=== PATIENT | female | born 1980 | race Caucasian/White ===

== ENCOUNTER → 2017-01-19 | Outpatient (CLI) | payer SELFPAY | END | disposition home or self-care (01) | LOC: MW.CHFP 15:30 | PROVIDERS: ATTEND Family Medicine | DX: L29.8 Other pruritus (principal); N89.8 Other specified noninflammatory disorders of vagina | CPT/HCPCS: 87480; 87510; 87660 ==

== ENCOUNTER → 2017-01-26 | Outpatient (CLI) | payer SELFPAY ==
--- NOTE | 2017-01-26 15:22 | US ---
Examination: Greater than 14 weeks transabdominal ultrasound with color Doppler and M-mode evaluatio n. HISTORY: FINDINGS: LMP is 09/23/2016 EVALUATION: Posterior placenta with a breech lie and grade 1. Visually amniotic fluid is withi n normal limits. Three-vessel cord is seen. Ventricles are within normal limits. Nuchal fold thickness is 4-5 mm. Four chamber heart is noted. Heart rate is 159 beats per minute. BIOMETRY AND GESTATIONAL AGE: Biparietal diameter 4.1 cm. The abdominal circumference is 13.9 cm. The femoral length is 2.8 cm wit h head circumference of 15.4 cm. The gestational age is 18 weeks and 4 days. The expected date of de livery is approximately 06/25/2017. Fetus weight is 260 grams. Overall fetus is within the 95th perce ntile. Other detail anatomy summarized into PACs sheet after the images. No anatomical anomalies. IMPRESSION: 1. Single active IU with breech fetus. Posterior placenta with grade 1, no placenta previa . 2. No anomalies are seen. Amniotic fluid appears within normal limits. 3. Overall the fetus is within the 95th percentile.
== END ==
LOC: MW.US 10:39
PROVIDERS: ATTEND Advanced Practice Midwife
DX: Z34.92 Encounter for supervision of normal pregnancy, unspecified, second trimester (principal); Z3A.18 18 weeks gestation of pregnancy
CPT/HCPCS: 76805; 76805-26

== ENCOUNTER 2017-06-29 06:04 | Inpatient (IN) | payer MEDICAID, OTHER ==
[~2017-06-29 06:04] MED LIST: Citric Acid/Sodium Citrate Solution 30 ML Cup PO SCH; Lactated Ringers 1,000 ML IV SCH; Oxytocin/0.9 % Sodium Chloride 30 UNIT/500 ML BAG IV SCH; Sodium Chloride 0.9% 10 ML Syringe FLUSH PRN; Sodium Chloride 0.9% 2.5 ML Syringe FLUSH PRN
[2017-06-29] MEDS ORDERED: ceFAZolin 2 GM in Premix Bag 1 BAG IV ONE (06:43)
[2017-06-29] MEDS ORDERED: Sodium Chloride 0.9% 20 ML ONE (07:53)
[2017-06-29] MEDS ORDERED: ceFAZolin 1 GM Vial ONE ×2 (07:58→08:12)
[2017-06-29] MEDS ORDERED: Morphine PF 10 MG/10 ML SDV ONE (07:58)
--- NOTE | 2017-06-29 07:58 | PCM.PREANE ---
Preanesthetic Assessment - Anesthesia/Transfusion/Family Hx Anesthesia History: Prior Anesthesia Without Reaction Other Type of Anesthesia Reaction Comment: Denies any known problem in past, "some motion sickness" Family History of Anesthesia Reaction: No Transfusion History: No Prior Transfusion(s) - Review of Systems General: No Symptoms Pulmonary: No Symptoms Cardiovascular: No Symptoms Gastrointestinal: No Symptoms Neurological: No Symptoms Other: Reports: None - Physical Assessment NPO Status Date: 06/28/17 NPO Status Time: 19:00 Height: 1.65 m Weight: 91.172 kg ASA Class: 2 Mental Status: Alert & Oriented x3 Airway Class: Mallampati = 2 Dentition: Reports: Normal Dentition ROM/Head Extension: Full Lungs: Clear to Auscultation, Normal Respiratory Effort Cardiovascular: Regular Rate, Regular Rhythm - Lab Values: Laboratory Last Values WBC 7.81 K/uL (4.0-11.0) 06/28/17 16:06 RBC 3.91 M/uL (4.30-5.90) L 06/28/17 16:06 Hgb 10.9 g/dL (12.0-16.0) L 06/28/17 16:06 Hct 32.8 % (36.0-46.0) L 06/28/17 16:06 MCV 83.9 fL (80.0-98.0) 06/28/17 16:06 MCH 27.9 pg (27.0-32.0) 06/28/17 16:06 MCHC 33.2 g/dL (31.0-37.0) 06/28/17 16:06 RDW Std Deviation 50.2 fl (28.0-62.0) 06/28/17 16:06 RDW Coeff of Denae 17 % (11.0-15.0) H 06/28/17 16:06 Plt Count 231 K/uL (150-400) 06/28/17 16:06 MPV 10.90 fL (7.40-12.00) 06/28/17 16:06 Nucleated RBC % 0.0 /100WBC 06/28/17 16:06 Nucleated RBCs # 0 K/uL 06/28/17 16:06 Blood Type O POSITIVE 06/28/17 16:06 Antibody Screen NEGATIVE 06/28/17 16:06 - Allergies Allergies/Adverse Reactions: Allergies Allergy/AdvReac Type Severity Reaction Status Date / Time No Known Allergies Allergy Verified 01/15/15 10:07 - Blood Blood Available: Yes - Anesthesia Plan Pre-Op Medication Ordered: Antacids - Acknowledgements Anesthesia Type Planned: Spinal Pt an Appropriate Candidate for the Planned Anesthesia: Yes Alternatives and Risks of Anesthesia Discussed w Pt/Guardian: Yes Pt/Guardian Understands and Agrees with Anesthesia Plan: Yes Additional Comments: hx gest DM, diet controlled, 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: , 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 - Past Surgical History Head Surgeries/Procedures: Reports: None Female Surgical History: Reports: Section - SUBSTANCE USE Smoking Status *Q: Never Smoker Second Hand Smoke Exposure: No Days Per Week of Alcohol Use: 0 Number of Drinks Per Day: 0 Total Drinks Per Week: 0 Recreational Drug Use History: No - HOME MEDS Home Medications: Home Meds Vit No.78/Iron/Fa [Prenatabs FA] 1 tab PO DAILY 01/15/15 [History] - CURRENT (IN HOUSE) MEDS Current Meds: Current Medications Citric Acid/Sodium Citrate (Bicitra Solution) 30 ml PO .ONCE JUNI Last Admin: 06/29/17 07:26 Dose: 30 ml Lactated Ringer's (Ringers, Lactated) 1,000 mls @ 500 mls/hr IV .BOLUS JUNI Last Admin: 06/29/17 07:26 Dose: 500 mls/hr Oxytocin/Sodium Chloride (Oxytocin 30 Unit/500 Ml-Ns) 30 unit in 500 mls @ 250 mls/hr IV TITRATE JUNI Sodium Chloride (Saline Flush) 10 ml FLUSH ASDIRECTED PRN PRN Reason: Keep Vein Open Sodium Chloride (Saline Flush) 2.5 ml FLUSH ASDIRECTED PRN PRN Reason: Keep Vein Open Discontinued Medications Cefazolin Sodium/Dextrose 2 gm (/ Premix) 50 mls @ 100 mls/hr IV ONETIME ONE Stop: 06/29/17 07:12 Sodium Chloride (Normal Saline) Confirm Administered Dose 20 mls @ as directed .ROUTE .STK-MED ONE Stop: 06/29/17 07:54
[2017-06-29] MEDS ORDERED: ePHEDrine 50 MG/ML SDV ONE (08:00)
[2017-06-29] MEDS ORDERED: Water For Injection, Sterile 20 ML ONE (08:01)
--- NOTE | 2017-06-29 08:10 | PCM.LDHP ---
L&D History of Present Illness - General Date of Service: 06/29/17 Admit Problem/Dx: Patient Status Order with Admit Dx/Problem 06/28/17 08:48 Patient Status [ADT] Routine Admission Diagnosis/Problem Admission Diagnosis/Problem Source of Information: Patient History Limitations: Reports: No Limitations - History of Present Illness Improves with: Reports: None Worsens with: Reports: None Associated Symptoms: Reports: N - Related Data Allergies/Adverse Reactions: Allergies Allergy/AdvReac Type Severity Reaction Status Date / Time No Known Allergies Allergy Verified 01/15/15 10:07 Home Medications: Home Meds Vit No.78/Iron/Fa [Prenatabs FA] 1 tab PO DAILY 01/15/15 [History] 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: , 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 - Past Surgical History Head Surgeries/Procedures: Reports: None Female Surgical History: Reports: Section Social & Family History - Family History Family Medical History: Noncontributory - Tobacco Use Smoking Status *Q: Never Smoker Second Hand Smoke Exposure: No - Caffeine Use Caffeine Use: Reports: Coffee, Soda - Alcohol Use Days Per Week of Alcohol Use: 0 Number of Drinks Per Day: 0 Total Drinks Per Week: 0 - Recreational Drug Use Recreational Drug Use: No Drug Use in Last 12 Months: No H&P Review of Systems - Review of Systems: Review Of Systems: See Below General: Reports: No Symptoms HEENT: Reports: No Symptoms Pulmonary: Reports: No Symptoms Cardiovascular: Reports: No Symptoms Gastrointestinal: Reports: No Symptoms Genitourinary: Reports: No Symptoms Musculoskeletal: Reports: No Symptoms Skin: Reports: No Symptoms Psychiatric: Reports: No Symptoms Neurological: Reports: No Symptoms Hematologic/Lymphatic: Reports: No Symptoms Immunologic: Reports: No Symptoms L&D Exam - Exam Exam: See Below - Vital Signs Weight: 91.172 kg - OB Specific Fundal Height In cm: 40 Contraction Intensity: Mild Movement: Active Heart Tones: Present Presentation: Vertex - Murphy Score Murphy Score Cervix Position: Midposition Murphy Score Consistency: Firm Murphy Score Effacement: 31-50% Murphy Score Dilation: Closed Murphy Score Infant's Station: -2 Murphy Score Total: 3 - Exam General: Alert, Oriented HEENT: PERRLA, Conjunctiva Clear, EACs Clear, EOMI, Hearing Intact, Mucosa Moist & [place], Nares Patent, Normal Nasal Septum, Posterior Pharynx Clear, TMs Clear Neck: Supple, Trachea Midline Lungs: Clear to Auscultation, Normal Respiratory Effort Cardiovascular: Regular Rate, Regular Rhythm GI/Abdominal Exam: Normal Bowel Sounds, Soft, Non-Tender, No Organomegaly, No Distention, No Abnormal Bruit, No Mass, Pelvis Stable Rectal Exam: Normal Exam, Normal Rectal Tone Genitourinary: Normal external exam, Normal bimanual exam, Normal speculum exam Back Exam: Normal Inspection, Full Range of Motion Extremities: Normal Inspection, Normal Range of Motion, Non-Tender, No Pedal Edema, Normal Capillary Refill Skin: Warm, Dry, Intact Neurological: Cranial Nerves Intact, Reflexes Equal Bilateral Psychiatric: Alert, Normal Affect, Normal Mood - Patient Data Lab Results Last 24 hrs: Laboratory Results - last 24 hr 06/28/17 06/28/17 06/29/17 Range/Units 16:06 16:06 08:00 WBC 7.81 (4.0-11.0) K/uL RBC 3.91 L (4.30-5.90) M/uL Hgb 10.9 L (12.0-16.0) g/dL Hct 32.8 L (36.0-46.0) % MCV 83.9 (80.0-98.0) fL MCH 27.9 (27.0-32.0) pg MCHC 33.2 (31.0-37.0) g/dL RDW Std Deviation 50.2 (28.0-62.0) fl RDW Coeff of Denae 17 H (11.0-15.0) % Plt Count 231 (150-400) K/uL MPV 10.90 (7.40-12.00) fL Nucleated RBC % 0.0 /100WBC Nucleated RBCs # 0 K/uL POC Glucose 74 (60-110) mg/dL Blood Type O POSITIVE Antibody Screen NEGATIVE Result Diagrams: 06/28/17 16:06 Problem List Initiated/Reviewed/Updated: Yes Orders Last 24hrs: Active Orders 24 hr Category Date Time Status Patient Status [ADT] Routine ADT 06/28/17 08:48 Active Non Stress Test [RC] PER UNIT ROUTINE Care 06/28/17 08:48 Active Procedure Site Prep Instruct [RC] ASDIRECTED Care 06/28/17 08:48 Active Up ad Jo [RC] ASDIRECTED Care 06/28/17 08:48 Active Vital Signs [RC] PER UNIT ROUTINE Care 06/28/17 08:48 Active Citric Acid/Sodium Citrate [Bicitra Solution] Med 06/28/17 09:00 Active 30 ml PO .ONCE Lactated Ringers [Ringers, Lactated] 1,000 ml Med 06/28/17 09:00 Active IV .BOLUS Oxytocin/0.9 % Sodium Chloride [Oxytocin 30 Unit/500 ML Med 06/28/17 09:00 Active -NS] 30 unit in 500 ml IV TITRATE Sodium Chloride 0.9% [Saline Flush] Med 06/28/17 08:48 Active 10 ml FLUSH ASDIRECTED PRN Sodium Chloride 0.9% [Saline Flush] Med 06/28/17 08:48 Active 2.5 ml FLUSH ASDIRECTED PRN Peripheral IV Insertion Adult [OM.PC] Routine Oth 06/28/17 08:48 Ordered Schedule Procedure [COMM] Per Unit Routine Oth 06/28/17 08:48 Ordered Resuscitation Status Routine Resus Stat 06/28/17 08:48 Ordered Medication Orders Citric Acid/Sodium Citrate (Bicitra Solution) 30 ml PO .ONCE JUNI Last Admin: 06/29/17 07:26 Dose: 30 ml Lactated Ringer's (Ringers, Lactated) 1,000 mls @ 500 mls/hr IV .BOLUS JUNI Last Admin: 06/29/17 07:26 Dose: 500 mls/hr Oxytocin/Sodium Chloride (Oxytocin 30 Unit/500 Ml-Ns) 30 unit in 500 mls @ 250 mls/hr IV TITRATE JUNI Sodium Chloride (Saline Flush) 10 ml FLUSH ASDIRECTED PRN PRN Reason: Keep Vein Open Sodium Chloride (Saline Flush) 2.5 ml FLUSH ASDIRECTED PRN PRN Reason: Keep Vein Open Assessment/Plan Comment:: Termn ,IUP39+3< admitted for electivr repeat C/ Section.
[2017-06-29] MEDS ORDERED: Nalbuphine 10 MG/1 ML Vial ONE (09:17)
[2017-06-29] MEDS ORDERED: Octyl 2-Cyanoacrylate 1 Tube ONE (09:19)
[2017-06-29] MEDS ORDERED: Ondansetron 4 MG/2 ML SDV IV PRN (09:22)
[2017-06-29] MEDS ORDERED: Bisacodyl 10 MG Supp RECTAL PRN (09:22)
[2017-06-29] MEDS ORDERED: diphenhydrAMINE 50 MG/ML SDV IVPUSH PRN ×2 (09:22→09:56)
[2017-06-29] MEDS ORDERED: Acetaminophen/oxyCODONE 325-5 MG Tab PO PRN ×2 (09:22→09:58)
[2017-06-29] MEDS ORDERED: Lanolin 100% Cream 7 GM Tube TOP PRN (09:22)
[2017-06-29] MEDS ORDERED: Midazolam 1 MG/ML 2 ML SDV ONE (09:27)
--- NOTE | 2017-06-29 09:28 | PCM.OPNOTE ---
- General Post-Op/Procedure Note Date of Surgery/Procedure: 06/29/17 Operative Procedure(s): Repeat C/Section Bilateral tubal ligation Pre Op Diagnosis: IUP39+3 Previous c/section desore sterlization Post-Op Diagnosis: Same Anesthesia Technique: Spinal Primary Surgeon: Rickey Brewster Pill Coater: Tasha Hernandez Pill Coater: Kayla MIKE in mLs: 700 Complications: None Condition: Good
[2017-06-29] MEDS ORDERED: Nalbuphine 10 MG/1 ML Vial IVPUSH PRN (09:56)
[2017-06-29] MEDS ORDERED: Naloxone 0.4 MG/ML Syringe IVPUSH PRN (09:56)
[2017-06-29] MEDS ORDERED: fentaNYL 100 MCG/2 ML SDV IVPUSH PRN (09:58)
--- NOTE | 2017-06-29 09:58 | PCM.POSTAN ---
POST ANESTHESIA ASSESSMENT - MENTAL STATUS Mental Status: Alert, Oriented - RESPIRATORY Respiratory Status: Respiratory Rate WNL, Airway Patent, O2 Saturation Stable - CARDIOVASCULAR CV Status: Pulse Rate WNL, Blood Pressure Stable - GASTROINTESTINAL GI Status: No Symptoms - POST OP HYDRATION Hydration Status: Adequate & Stable
[2017-06-29] MEDS: Ketorolac 30 MG/ML SDV IVPUSH SCH ×3 (10:17→22:05)
--- NOTE | 2017-06-29 10:52 | OR ---
SURGEON: Rickey Brewster MD DATE OF PROCEDURE: 06/29/2017 PREOPERATIVE DIAGNOSIS: Intrauterine , 39 plus 3, term , previous section, desire permanent sterilization. POSTOPERATIVE DIAGNOSES: Intrauterine , 39 plus 3, term , previous section, desire permanent sterilization. OPERATION PERFORMED: Repeat low transverse section and Estella tubal ligation. BLOW MOLD TECHNICIAN: ROLANDO Estrada ANESTHESIA: Spinal, nurse director of scout work and Dr. Clayton. ESTIMATED BLOOD LOSS: 700 mL. COMPLICATIONS: None. FINDINGS: Normal uterus, tubes, and ovary. Female fetus. score, 8 and 9. The weight is not available at this time. INDICATIONS FOR SURGERY: This patient had multiple previous sections. She is term. She is 39 plus three weeks. She is followed in the clinic primarily by me. The patient desired permanent sterilization. She is petitioned at the ethic committee and she was approved by the ethic committee for tubal ligation at the time of the section. PROCEDURE IN DETAIL: The patient was brought to the OR, properly identified, and after adequate level of spinal anesthesia, with a Mike catheter in the bladder, the patient was prepped and draped in a sterile fashion as usual. Low transverse Pfannenstiel skin incision through the old scar was done. The Charu's fascia and rectus fascia were opened in direction of the incision. The 2 recti muscles were and peritoneal cavity was entered. The bladder flap was raised in the usual manner pushing the bladder away from the lower uterine segment. Low transverse uterine incision was done and extended manually with the hand. The fetus was in the vertex position, delivered without any problem. It was a female. She cried immediately. score reported to be 8 and 9. The weight is not available. The placenta delivered spontaneous, complete, and intact and then repair of the lower uterine segment was done with 2-0 Vicryl continuous interlocking and then reperitonealization of the lower uterine segment was done with 3-0 Vicryl continuous. Then attention was paid at this time to the tube and a segment of each tube was tied with 2-0 chromic catgut and transected and removed for histopathology thus achieving bilateral tubal ligation with a [place] method. Once that was accomplished, the peritoneal cavity evacuated completely from all blood and blood clot and closed with 3-0 Vicryl continuous. The rectus fascia was closed with #1 PDS double strand continuous. The Charu's fascia closed with 3-0 Vicryl and the skin closed in a subcuticular fashion. Instrument and sponge count were correct. The patient tolerated the procedure well, went to recovery room in stable general condition. WANDER ZAMUDIO /[id number]
[2017-06-29] MEDS: Lactated Ringers 1,000 ML IV SCH ×2 (10:53→19:02)
[2017-06-29] MEDS: Docusate Sodium 100 MG Cap PO SCH (22:05)
[2017-06-30] MEDS: Ketorolac 30 MG/ML SDV IVPUSH SCH ×2 (05:49→11:40)
--- NOTE | 2017-06-30 07:05 | PCM48HPAN ---
Post Anesthesia Note - EVALUATION WITHIN 48HRS OF ANESTHETIC Vital Signs in Normal Range: Yes Patient Participated in Evaluation: Yes Respiratory Function Stable: Yes Airway Patent: Yes Cardiovascular Function Stable: Yes Hydration Status Stable: Yes Pain Control Satisfactory: Yes Nausea and Vomiting Control Satisfactory: Yes Mental Status Recovered: Yes
--- NOTE | 2017-06-30 08:45 | PCM.PNPP ---
- General Info Date of Service: 06/30/17 Functional Status: Reports: Pain Controlled - Review of Systems General: Reports: No Symptoms HEENT: Reports: No Symptoms Pulmonary: Reports: No Symptoms Cardiovascular: Reports: No Symptoms Gastrointestinal: Reports: No Symptoms Genitourinary: Reports: No Symptoms Musculoskeletal: Reports: No Symptoms Skin: Reports: No Symptoms Neurological: Reports: No Symptoms Psychiatric: Reports: No Symptoms - General Info Date of Service: 06/30/17 - Patient Data Vital Signs - Most Recent: Last Vital Signs Temp 37.4 C 06/30/17 04:00 Pulse 83 06/30/17 07:00 Resp 17 06/30/17 07:00 BP 116/61 06/30/17 04:00 Pulse Ox 95 06/30/17 07:00 Weight - Most Recent: 91.172 kg I&O - Last 24 Hours: Intake & Output 06/29/17 06/30/17 06/30/17 22:59 06:59 14:59 Intake Total 500 750 Output Total 350 Balance 150 750 Lab Results - Last 24 Hours: Laboratory Results - last 24 hr 06/30/17 Range/Units 05:31 Hgb 9.9 L (12.0-16.0) g/dL Hct 30.5 L (36.0-46.0) % Med Orders - Current: Current Medications Bisacodyl (Dulcolax) 10 mg RECTAL .ONCE PRN PRN Reason: Constipation Citric Acid/Sodium Citrate (Bicitra Solution) 30 ml PO .ONCE JUNI Last Admin: 06/29/17 07:26 Dose: 30 ml Diphenhydramine HCl (Benadryl) 25 mg IVPUSH Q6H PRN PRN Reason: Itching or Nausea Diphenhydramine HCl (Benadryl) 25 mg IVPUSH Q4H PRN PRN Reason: Itching Stop: 06/30/17 09:57 Docusate Sodium (Colace) 100 mg PO BID JUNI Last Admin: 06/29/17 22:05 Dose: 100 mg Emollient Ointment (Lansinoh Hpa) 0 gm TOP ASDIRECTED PRN PRN Reason: Sore Nipples Fentanyl (Sublimaze) 25 - 50 mcg IVPUSH Q30M PRN PRN Reason: Pain Lactated Ringer's (Ringers, Lactated) 1,000 mls @ 500 mls/hr IV .BOLUS [facility] Last Admin: 06/29/17 07:26 Dose: 500 mls/hr Oxytocin/Sodium Chloride (Oxytocin 30 Unit/500 Ml-Ns) 30 unit in 500 mls @ 250 mls/hr IV TITRATE [facility] Lactated Ringer's (Ringers, Lactated) 1,000 mls @ 125 mls/hr IV ASDIRECTED [facility] Last Admin: 06/29/17 19:02 Dose: 125 mls/hr Ibuprofen (Motrin) 800 mg PO Q8H PRN PRN Reason: mild pain or fever Ketorolac Tromethamine (Toradol) 30 mg IVPUSH Q6H [facility] Stop: 06/30/17 09:31 Last Admin: 06/30/17 05:49 Dose: 30 mg Nalbuphine HCl (Nubain) 5 mg IVPUSH Q3H PRN PRN Reason: Pruritis Stop: 06/30/17 09:56 Naloxone HCl (Narcan) 0.1 mg IVPUSH ONETIME PRN PRN Reason: Other Stop: 06/30/17 09:57 Ondansetron HCl (Zofran) 4 mg IV Q4H PRN PRN Reason: Nausea/Vomiting Oxycodone/Acetaminophen (Percocet 325-5 Mg) 1 tab PO Q4H PRN PRN Reason: Pain (moderate 4-6) Oxycodone/Acetaminophen (Percocet 325-5 Mg) 2 tab PO Q4H PRN PRN Reason: Pain (moderate 4-6) Oxycodone/Acetaminophen (Percocet 325-5 Mg) 1 - 2 tab PO Q6H PRN PRN Reason: Pain Stop: 07/01/17 14:00 Sodium Chloride (Saline Flush) 10 ml FLUSH ASDIRECTED PRN PRN Reason: Keep Vein Open Sodium Chloride (Saline Flush) 2.5 ml FLUSH ASDIRECTED PRN PRN Reason: Keep Vein Open Discontinued Medications Cefazolin Sodium (Ancef) Confirm Administered Dose 1 gm .ROUTE .STK-MED ONE Stop: 06/29/17 07:59 Cefazolin Sodium (Ancef) Confirm Administered Dose 1 gm .ROUTE .STK-MED ONE Stop: 06/29/17 08:13 Ephedrine Sulfate (Ephedrine Sulfate) Confirm Administered Dose 50 mg .ROUTE .STK-MED ONE Stop: 06/29/17 08:01 Cefazolin Sodium/Dextrose 2 gm (/ Premix) 50 mls @ 100 mls/hr IV ONETIME ONE Stop: 06/29/17 07:12 Sodium Chloride (Normal Saline) Confirm Administered Dose 20 mls @ as directed .ROUTE .STK-MED ONE Stop: 06/29/17 07:54 Sterile Water (Sterile Water For Injection) Confirm Administered Dose 20 mls @ as directed .ROUTE .STK-MED ONE Stop: 06/29/17 08:02 Midazolam HCl (Versed 1 Mg/Ml) Confirm Administered Dose 2 mg .ROUTE .STK-MED ONE Stop: 06/29/17 09:28 Morphine Sulfate (Duramorph Pf) Confirm Administered Dose 10 mg .ROUTE .STK-MED ONE Stop: 06/29/17 07:59 Nalbuphine HCl (Nubain) Confirm Administered Dose 10 mg .ROUTE .STK-MED ONE Stop: 06/29/17 09:18 Octyl Cyanoacrylate (Dermabond Advance) Confirm Administered Dose 1 applic .ROUTE .STK-MED ONE Stop: 06/29/17 09:20 - Infant Interaction Support Person: Significant Other - Recovery Exam Fundal Tone: Firm Fundal Level: At Umbilicus Fundal Placement: Midline Lochia Amount: Small Lochia Color: Rubra/Red Perineum Description: Intact, Minimal Bruising/Swelling Episiotomy/Laceration: Approximated Bladder Status: Indwelling Catheter in Place Urinary Elimination: Voided - Exam General: Alert, Oriented HEENT: Pupils Equal Neck: Supple Lungs: Clear to Auscultation, Normal Respiratory Effort Cardiovascular: Regular Rate, Regular Rhythm GI/Abdominal Exam: Normal Bowel Sounds, Soft, Non-Tender, No Organomegaly, No Distention, No Abnormal Bruit, No Mass, Pelvis Stable Extremities: Normal Inspection, Normal Range of Motion, Non-Tender, No Pedal Edema, Normal Capillary Refill Skin: Warm, Dry, Intact Wound/Incisions: Healing Well Neurological: No New Focal Deficit Psy/Mental Status: Alert, Normal Affect, Normal Mood - Problem List Review Problem List Initiated/Reviewed/Updated: Yes - My Orders Last 24 Hours: My Active Orders 06/29/17 09:22 Acetaminophen/oxyCODONE [Percocet 325-5 MG] 1 tab PO Q4H PRN Acetaminophen/oxyCODONE [Percocet 325-5 MG] 2 tab PO Q4H PRN Bisacodyl [Dulcolax] 10 mg RECTAL .ONCE PRN Ibuprofen [Motrin] 800 mg PO Q8H PRN Lanolin [Lansinoh HPA] See Dose Instructions TOP ASDIRECTED PRN Ondansetron [Zofran] 4 mg IV Q4H PRN diphenhydrAMINE [Benadryl] 25 mg IVPUSH Q6H PRN 06/29/17 09:23 Patient Status [ADT] Routine Ambulate [RC] PER UNIT ROUTINE Antiembolic Devices [RC] PER UNIT ROUTINE Communication Order [RC] PER UNIT ROUTINE Communication Order [RC] PER UNIT ROUTINE Communication Order [RC] Per Unit Routine May Shower [RC] ASDIRECTED RT Incentive Spirometry [RC] Q2HWA Assess Lochia [WOMSER] Per Unit Routine Assess Uterine Involution [WOMSER] Per Unit Routine Breast Pump [WOMSER] Per Unit Routine Peripheral IV Discontinue [OM.PC] Routine Sequential Compression Device [OM.PC] Per Unit Routine 06/29/17 09:30 Ketorolac [Toradol] 30 mg IVPUSH Q6H Lactated Ringers [Ringers, Lactated] 1,000 ml IV ASDIRECTED 06/29/17 21:00 Docusate Sodium [Colace] 100 mg PO BID 06/30/17 Breakfast Regular Diet [DIET] - Assessment Assessment:: Status post section and tubal ligation postoperative day #1 patient is doing well - Plan Plan:: Termn ,IUP39+3< admitted for electivr repeat C/ Section.
[2017-06-30] MEDS: Docusate Sodium 100 MG Cap PO SCH ×2 (09:29→21:33)
[2017-06-30] MEDS: Acetaminophen/oxyCODONE 325-5 MG Tab PO PRN ×2 (09:29→17:19)
[2017-06-30] MEDS: Ibuprofen 800 MG Tab PO PRN (18:05)
[2017-07-01] MEDS: Ibuprofen 800 MG Tab PO PRN (07:38)
[2017-07-01] MEDS: Docusate Sodium 100 MG Cap PO SCH ×2 (07:39→08:20)
[2017-07-01 07:48] VITALS: BP 131/60
--- NOTE | 2017-07-01 09:57 | PCM.DCSUM1 ---
Discharge Summary - Hospital Course Free Text/Narrative:: Discharge home with . Follow up in 10 days for incision check and 6 weeks for post visit. - Discharge Data Discharge Date: 07/01/17 Discharge Disposition: Home, Self-Care 01 Condition: Good - Patient Summary/Data Operative Procedure(s) Performed: Repeat C/Section Bilateral tubal ligation - Patient Instructions Diet: Usual Diet as Tolerated Activity: As Tolerated, Rest and Relax Today Driving: May Drive Today Showering/Bathing: May Shower Wound/Incision Care: Keep Operative Site/Wound Site Clean and Dry Notify Provider of: Fever, Increased Pain, Swelling and Redness, Drainage, Nausea and/or Vomiting Other/Special Instructions: Discharge home with . Follow up in 10 days for incision check and 6 weeks for post visit. - Discharge Plan Home Medications: Home Meds Vit No.78/Iron/Fa [Prenatabs FA] 1 tab PO DAILY 01/15/15 [History] Patient Handouts: Delivery, Care After Referrals: [facility] [Outside] Rickey Brewster MD [Physician] - (1 week- July 07 @ 8:30am w/ Dr. Brewster 6 week- August 07 @ 10:45am w/ Dr. Brewster ) - General Info Date of Service: 07/01/17 Admission Dx/Problem (Free Text: Patient Status Order with Admit Dx/Problem 06/28/17 08:48 Patient Status [ADT] Routine Admission Diagnosis/Problem Admission Diagnosis/Problem Functional Status: Reports: Pain Controlled, Tolerating Diet, Ambulating, Urinating - Review of Systems General: Reports: No Symptoms HEENT: Reports: No Symptoms Pulmonary: Reports: No Symptoms Cardiovascular: Reports: No Symptoms Gastrointestinal: Reports: No Symptoms Genitourinary: Reports: No Symptoms Musculoskeletal: Reports: No Symptoms Skin: Reports: No Symptoms Neurological: Reports: No Symptoms Psychiatric: Reports: No Symptoms - Patient Data Vitals - Most Recent: Last Vital Signs Temp 36.8 C 07/01/17 07:00 Pulse 78 07/01/17 07:00 Resp 15 07/01/17 07:00 BP 131/60 07/01/17 07:00 Pulse Ox 94 L 07/01/17 07:00 Weight - Most Recent: 91.172 kg Med Orders - Current: Current Medications Bisacodyl (Dulcolax) 10 mg RECTAL .ONCE PRN PRN Reason: Constipation Citric Acid/Sodium Citrate (Bicitra Solution) 30 ml PO .ONCE [facility] Last Admin: 06/29/17 07:26 Dose: 30 ml Diphenhydramine HCl (Benadryl) 25 mg IVPUSH Q6H PRN PRN Reason: Itching or Nausea Docusate Sodium (Colace) 100 mg PO BID [facility] Last Admin: 07/01/17 08:20 Dose: Not Given Emollient Ointment (Lansinoh Hpa) 0 gm TOP ASDIRECTED PRN PRN Reason: Sore Nipples Fentanyl (Sublimaze) 25 - 50 mcg IVPUSH Q30M PRN PRN Reason: Pain Lactated Ringer's (Ringers, Lactated) 1,000 mls @ 500 mls/hr IV .BOLUS [facility] Last Admin: 06/29/17 07:26 Dose: 500 mls/hr Oxytocin/Sodium Chloride (Oxytocin 30 Unit/500 Ml-Ns) 30 unit in 500 mls @ 250 mls/hr IV TITRATE [facility] Lactated Ringer's (Ringers, Lactated) 1,000 mls @ 125 mls/hr IV ASDIRECTED [facility] Last Admin: 06/29/17 19:02 Dose: 125 mls/hr Ibuprofen (Motrin) 800 mg PO Q8H PRN PRN Reason: mild pain or fever Last Admin: 07/01/17 07:38 Dose: 800 mg Measles/Mumps/Rubella Vaccine Live (M-M-R Ii Vaccine) 0.5 ml SUBCUT .ONCE ONE Stop: 07/02/17 09:44 Ondansetron HCl (Zofran) 4 mg IV Q4H PRN PRN Reason: Nausea/Vomiting Oxycodone/Acetaminophen (Percocet 325-5 Mg) 1 tab PO Q4H PRN PRN Reason: Pain (moderate 4-6) Last Admin: 06/30/17 17:19 Dose: 1 tab Oxycodone/Acetaminophen (Percocet 325-5 Mg) 2 tab PO Q4H PRN PRN Reason: Pain (moderate 4-6) Last Admin: 06/30/17 23:09 Dose: 2 tab Oxycodone/Acetaminophen (Percocet 325-5 Mg) 1 - 2 tab PO Q6H PRN PRN Reason: Pain Stop: 07/01/17 14:00 Sodium Chloride (Saline Flush) 10 ml FLUSH ASDIRECTED PRN PRN Reason: Keep Vein Open Sodium Chloride (Saline Flush) 2.5 ml FLUSH ASDIRECTED PRN PRN Reason: Keep Vein Open Discontinued Medications Cefazolin Sodium (Ancef) Confirm Administered Dose 1 gm .ROUTE .STK-MED ONE Stop: 06/29/17 07:59 Cefazolin Sodium (Ancef) Confirm Administered Dose 1 gm .ROUTE .STK-MED ONE Stop: 06/29/17 08:13 Diphenhydramine HCl (Benadryl) 25 mg IVPUSH Q4H PRN PRN Reason: Itching Stop: 06/30/17 09:57 Ephedrine Sulfate (Ephedrine Sulfate) Confirm Administered Dose 50 mg .ROUTE .STK-MED ONE Stop: 06/29/17 08:01 Cefazolin Sodium/Dextrose 2 gm (/ Premix) 50 mls @ 100 mls/hr IV ONETIME ONE Stop: 06/29/17 07:12 Last Admin: 06/30/17 11:09 Dose: Not Given Sodium Chloride (Normal Saline) Confirm Administered Dose 20 mls @ as directed .ROUTE .STK-MED ONE Stop: 06/29/17 07:54 Sterile Water (Sterile Water For Injection) Confirm Administered Dose 20 mls @ as directed .ROUTE .STK-MED ONE Stop: 06/29/17 08:02 Ketorolac Tromethamine (Toradol) 30 mg IVPUSH Q6H JUNI Stop: 06/30/17 09:31 Last Admin: 06/30/17 11:40 Dose: 30 mg Midazolam HCl (Versed 1 Mg/Ml) Confirm Administered Dose 2 mg .ROUTE .STK-MED ONE Stop: 06/29/17 09:28 Morphine Sulfate (Duramorph Pf) Confirm Administered Dose 10 mg .ROUTE .STK-MED ONE Stop: 06/29/17 07:59 Nalbuphine HCl (Nubain) Confirm Administered Dose 10 mg .ROUTE .STK-MED ONE Stop: 06/29/17 09:18 Nalbuphine HCl (Nubain) 5 mg IVPUSH Q3H PRN PRN Reason: Pruritis Stop: 06/30/17 09:56 Naloxone HCl (Narcan) 0.1 mg IVPUSH ONETIME PRN PRN Reason: Other Stop: 06/30/17 09:57 Octyl Cyanoacrylate (Dermabond Advance) Confirm Administered Dose 1 applic .ROUTE .[employer] ONE Stop: 06/29/17 09:20 - Exam General: Reports: Alert, Oriented, Cooperative, No Acute Distress Lungs: Reports: Clear to Auscultation, Normal Respiratory Effort Cardiovascular: Reports: Regular Rate, Regular Rhythm, No Murmurs GI/Abdominal Exam: Normal Bowel Sounds, Soft, Non-Tender, No Organomegaly, No Distention, No Mass (Female) Exam: Vaginal Bleeding Rectal (Female) Exam: Deferred Back Exam: Reports: Full Range of Motion Extremities: Normal Inspection, Normal Range of Motion, Non-Tender, No Pedal Edema, Normal Capillary Refill Skin: Reports: Warm, Dry, Intact Wound/Incisions: Reports: Healing Well, No Drainage Neurological: Reports: No New Focal Deficit, Normal Speech, Normal Tone Psy/Mental Status: Reports: Alert, Normal Affect, Normal Mood *Q Meaningful Use (DIS) - VTE *Q VTE Criteria *Q: - Stroke *Q Stroke Criteria *Q: - AMI *Q AMI Criteria *Q:
[2017-07-01] MEDS ORDERED: Measles, Mumps & Rubella Vaccine 0.5 ML SDV SUBCUT ONE (11:00)
== END 2017-07-01 12:05 | disposition home or self-care (01) | DRG 766 ==
LOC: MW.OB 06:04
PROVIDERS: ADMIT Obstetrics & Gynecology; ATTEND Obstetrics & Gynecology
PROC: 10D00Z1 Extraction of Products of Conception, Low, Open Approach (ICD-10-PCS; principal; 2017-06-29)
PROC: 0UL70ZZ Occlusion of Bilateral Fallopian Tubes, Open Approach (ICD-10-PCS; 2017-06-29)
DX: O34.211 Maternal care for low transverse scar from previous cesarean delivery (principal); O09.523 Supervision of elderly multigravida, third trimester; Z3A.39 39 weeks gestation of pregnancy; Z37.0 Single live birth
CPT/HCPCS: 01961; 36415; 59025; 82962; 85014; 85018; 85027; 86850; 86900; 86901; 88304; 90471; 90707; A9270-GY; J0690; J1885; J2250; J2270; J2300; J7120

== ENCOUNTER 2019-10-19 10:00 | Emergency (ER) | payer OTHER, SELFPAY ==
[2019-10-19] MEDS ORDERED: Ondansetron 4 MG Tab.DIS PO ONE (10:36)
[2019-10-19] MEDS ORDERED: Ketorolac 30 MG/ML SDV IM ONE (10:37)
--- NOTE | 2019-10-19 10:43 | EDM.PDOC ---
ED HPI GENERAL MEDICAL PROBLEM - General Chief Complaint: Headache Stated Complaint: HEADACHE Time Seen by Provider: 10/19/19 10:28 Source of Information: Reports: Patient History Limitations: Reports: Language Barrier, Other (A friend interperted for her. She speaks only afghan.) - History of Present Illness INITIAL COMMENTS - FREE TEXT/NARRATIVE: This 39 year old female presents to the ED with a chief complaint of headache over the past week that has gotten progressively worse. She complains of nausea but no vomiting at this time. She describes the headache as sharp to dull from the forehead to the back of her head. She also complains of blurred vision that comes and goes. She states that the headache actually feels better when bending her chin to her chest. She denies any other complaints. Onset: Gradual Duration: Week(s): (two weeks) Location: Reports: Head Severity: Moderate Improves with: Reports: Other (chin to chest) Worsens with: Reports: None Associated Symptoms: Reports: Headaches, Nausea/Vomiting (nausea but no vomiting.), Syncope. 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 - Past Surgical History Head Surgeries/Procedures: Reports: None Female Surgical History: Reports: Section Social & Family History - Family History Family Medical History: Noncontributory - Tobacco Use Smoking Status *Q: Never Smoker - Caffeine Use Caffeine Use: Reports: Coffee, Soda - Recreational Drug Use Recreational Drug Use: No ED ROS GENERAL - Review of Systems Review Of Systems: See Below Constitutional: Reports: No Symptoms HEENT: Reports: Other (other than headache, no other complaints.) Respiratory: Reports: No Symptoms Cardiovascular: Reports: No Symptoms Endocrine: Reports: No Symptoms GI/Abdominal: Reports: No Symptoms : Reports: No Symptoms Musculoskeletal: Reports: No Symptoms Skin: Reports: No Symptoms Neurological: Reports: Headache. Denies: Numbness, Paresthesia, Syncope, Tremors, Trouble Speaking, Difficulty Walking, Weakness, Gait Disturbance Psychiatric: Reports: No Symptoms Immunologic: Reports: No Symptoms - Physical Exam Exam: See Below Exam Limited By: Language Barrier General Appearance: Alert, WD/WN, No Apparent Distress Eye Exam: Bilateral Eye: EOMI, Normal Fundi, Normal Inspection, PERRL Ears: Normal External Exam, Normal Canal, Hearing Grossly Normal, Normal TMs Nose: Normal Inspection, Normal Mucosa, No Blood Throat/Mouth: Normal Inspection, Normal Lips, Normal Teeth, Normal Gums, Normal Oropharynx, Normal Voice, No Airway Compromise Head Exam: Atraumatic, Normocephalic. No: Facial Tenderness Neck: Normal Inspection, Supple, Non-Tender, Full Range of Motion Respiratory/Chest: No Respiratory Distress, Lungs Clear, Normal Breath Sounds, No Accessory Muscle Use, Chest Non-Tender, Other (4cm X 2.8cm indurated mass possible abscess or lymph node. I will do a breast exam to rule out breast cancer. Breast exam was negative for masses or lumps. Both breast were examined.) Cardiovascular: Normal Peripheral Pulses, Regular Rate, Rhythm, No Edema, No Gallop, No JVD, No Murmur, No Rub GI/Abdominal: Normal Bowel Sounds, Soft, Non-Tender, No Organomegaly, No Distention, No Abnormal Bruit, No Mass Neuro Exam (Abbreviated): Alert, Oriented, CN II-XII Intact, Normal Cognition, Normal Gait, Normal Reflexes, No Motor/Sensory Deficits DTR: 3+: Bicep (R), Bicep (L), Patella (R), Patella (L) Back Exam: Normal Inspection, Full Range of Motion, NT Extremities: Normal Inspection, Normal Range of Motion, Non-Tender, No Pedal Edema, Normal Capillary Refill Psychiatric: Normal Affect, Normal Mood Skin Exam: Other (as noted above in right axilla) Course - Vital Signs Text/Narrative:: The patient did well. I discussed her negative CT of the head and reviewed all diagnostic test. I also went over with her the routine breast exam. Her breast exam is negative for masses or lumps. She will be discharged with appropriate follow up instructions. She agrees with the discharge plan. Last Recorded V/S: Last Vital Signs Temp 98.0 F 10/19/19 10:13 Pulse 68 10/19/19 10:13 Resp 18 10/19/19 10:13 BP 151/83 H 10/19/19 10:13 Pulse Ox 98 10/19/19 10:13 - Orders/Labs/Meds Meds: Medications Discontinued Medications Generic Name Dose Route Start Last Admin Trade Name Erica PRN Reason Stop Dose Admin Cephalexin 500 mg 10/19/19 12:02 Keflex PO 10/19/19 12:03 ONETIME ONE Ketorolac Tromethamine 30 mg 10/19/19 10:37 10/19/19 10:44 Toradol IM 10/19/19 10:38 30 mg ONETIME ONE Administration Ondansetron HCl 4 mg 10/19/19 10:36 10/19/19 10:44 Zofran Odt PO 10/19/19 10:37 4 mg ONETIME ONE Administration Departure - Departure Time of Disposition: 12:08 Disposition: Home, Self-Care 01 Condition: Good Clinical Impression: Head ache Qualifiers: Headache type: unspecified Headache chronicity pattern: unspecified pattern Intractability: not intractable Qualified Code(s): R51 - Headache - Discharge Information *PRESCRIPTION DRUG MONITORING PROGRAM REVIEWED*: Yes *COPY OF PRESCRIPTION DRUG MONITORING REPORT IN PATIENT ANA: Yes Instructions: General Headache Without Cause, [id number] Referrals: PCP,None [Primary Care Provider] - Forms: ED Department Discharge Additional Instructions: Take all medications as directed. Please do a monthly breast exam as I went over with you. Rest for the next 24 hours. Warm compresses to the right arm pit over the abscess area for the next 3 days (30 minutes on and one off while awake). Return to the ED if your condition gets worse or if you have any further concerns or questions. The following information is given to patients seen in the emergency department who are being discharged to home. This information is to outline your options for follow-up care. We provide all patients seen in our emergency department with a follow-up referral. The need for follow-up, as well as the timing and circumstances, are variable depending upon the specifics of your emergency department visit. If you don't have a primary care physician on staff, we will provide you with a referral. We always advise you to contact your personal physician following an emergency department visit to inform them of the circumstance of the visit and for follow-up with them and/or the need for any referrals to a consulting specialist. The emergency department will also refer you to a specialist when appropriate. This referral assures that you have the opportunity for follow-up care with a specialist. All of these measure are taken in an effort to provide you with optimal care, which includes your follow-up. Under all circumstances we always encourage you to contact your private physician who remains a resource for coordinating your care. When calling for follow-up care, please make the office aware that this follow-up is from your recent emergency room visit. If for any reason you are refused follow-up, please contact the [facility] Emergency Department at and asked to speak to the emergency department charge nurse. Sepsis Event Note - Evaluation Sepsis Screening Result: No Definite Risk - Focused Exam Vital Signs: Vital Signs Temp Pulse Resp BP Pulse Ox 10/19/19 10:13 98.0 F 68 18 151/83 H 98 Date Exam was Performed: 10/19/19 Time Exam was Performed: 12:05
--- NOTE | 2019-10-19 11:28 | CT ---
Head CT Technique: Multiple axial sections through the brain were obtained. Intravenous contrast was not utilized. Comparison: No prior intracranial imaging is available. Findings: Ventricles along with basal cisterns and sulci over the convexities are within normal limits for the patient's age. No abnormal parenchymal densities are seen. No evidence of intracranial hemorrhage. No midline shift or mass effect is seen. Slightly prominent cisterna magna is noted which is felt to be a normal variant. No acute calvarial abnormality is seen. Mastoid sinuses show nothing acute. Visualized paranasal sinuses show nothing acute. Impression: 1. Nothing acute is appreciated on noncontrast head CT study. Diagnostic code #1 This report was dictated in [place] Standard Time
[2019-10-19] MEDS ORDERED: Cephalexin 500 MG Cap PO ONE (12:02)
[2019-10-19 12:29] VITALS: BP 134/70; PULSE 60
== END 2019-10-19 12:29 | disposition home or self-care (01) ==
LOC: MW.ED 10:00
DX: R51 Headache (principal)
CPT/HCPCS: 70450; 96372; 99284; A9270; J1885